=== PATIENT | female | born 1995 | race Caucasian/White ===

== ENCOUNTER 2019-12-16 15:35 | Emergency (ER) | payer MEDICAID, OTHER ==
[~2019-12-16] VITALS: Ht 157.4 cm; Wt 78.9 kg
[2019-12-16 15:35] VITALS: BP 117/72
[2019-12-16 15:58] LABS: BILIRUBIN,URINE NEGATIVE (NEGATIVE); CLARITY,URINE SL CLOUDY; COLOR,URINE YELLOW; GLUCOSE, URINE (UA) NEGATIVE (NEGATIVE); KETONES,URINE NEGATIVE (NEGATIVE); LEUKOCYTE ESTERASE ,URINE NEGATIVE (NEGATIVE); NITRITE,URINE NEGATIVE (NEGATIVE); PROTEIN,URINE NEGATIVE (NEGATIVE)
--- NOTE | 2019-12-16 16:04 | ED Abdominal Pain ---
General Chief Complaint: Female Reproductive Stated Complaint: 11 WEEKS ;ABD CRAMPING;SPOTTING Nursing Triage Note: Pt reports being 11 weeks and has been experiencing abdominal and back cramping that began today. Pt reports light blood on toilet paper when wiping.Pt sees Dr. Betts. 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 The patient is 11 weeks , dating reportedly confirmed by US with her OB Dr. Betts at 8 weeks. She states she has had 3 days of diarrhea with greenish stools. She complains of bilateral lower abdominal cramping occasionally radiating to the middle of her back today, severity 8/10. She states she had blood when wiping today and believes it was from her vagina. The patient denies fever, chills, chest pain, SOB, burning with urination, increased nausea. Denies passage of clots. The pt takes vitamins (FELIZ CARREON STUDENT) Allergies and Home Medications Allergies Coded Allergies: oxytocin (Verified Allergy, Unknown, 12/16/19) seizure at Patient Home Medication List Home Medication List Reviewed: Yes (FELIZ STALEY APRN) Review of Systems Review of Systems Constitutional: No chills, No fever Respiratory: Denies Cough, Denies Shortness of Air Cardiovascular: Denies Chest Pain Gastrointestinal: Abdominal Pain (bilateral lower pain); Denies Constipated; Diarrhea, Nausea (baseline for ), Other (blood with wiping vagina) Musculoskeletal: back pain (radiation from abdomen to mid back) (FELIZ CARREON STUDENT) Past Kswzwsy-Cveiov-Kofcno Hx Patient Social History Alcohol Use: Denies Use Recent Foreign Travel: No Contact w/Someone Who Travel: No Recent Infectious Disease Expo: No (FELIZ CARREON STUDENT) Physical Exam Vital Signs Vital Signs - First Documented 12/16/19 15:35 Temp 36.9 Pulse 89 Resp 20 B/P (MAP) 117/72 (87) Pulse Ox 99 O2 Delivery Room Air (FELIZ STALEY APRN) Vital Signs Capillary Refill : Less Than 3 Seconds (FELIZ CARREON MED STUDENT) Height/Weight/BMI Height: '" Weight: lbs. oz. kg; 31.00 BMI Method: General Appearance: WD/WN, no apparent distress HEENT: PERRL/EOMI Respiratory: chest non-tender, lungs clear, normal breath sounds, no respiratory distress, no accessory muscle use Cardiovascular: regular rate, rhythm, no edema, no gallop, no JVD, no murmur Gastrointestinal: non tender, soft, other (gravid abdomen) Back: normal inspection, no CVA tenderness Neurologic/Psychiatric: alert, normal mood/affect, oriented x 3 Skin: normal color, warm/dry (FELIZ CARREON MED STUDENT) Progress/Results/Core Measures Results/Orders Lab Results Laboratory Tests Test 12/16/19 15:39 12/16/19 16:07 12/16/19 16:08 Range/Units Urine Color YELLOW Urine Clarity SL CLOUDY Urine pH 7.0 5-9 Urine Specific [place] 1.015 L 1.016-1.022 Urine Protein NEGATIVE NEGATIVE Urine Glucose (UA) NEGATIVE NEGATIVE Urine Ketones NEGATIVE NEGATIVE Urine Nitrite NEGATIVE NEGATIVE Urine Bilirubin NEGATIVE NEGATIVE Urine Urobilinogen 0.2 < = 1.0 MG/DL Urine Leukocyte Esterase NEGATIVE NEGATIVE Urine RBC (Auto) NEGATIVE NEGATIVE Urine RBC NONE /HPF Urine WBC RARE /HPF Urine Squamous Epithelial Cells 10-25 H /HPF Urine Crystals NONE /LPF Urine Amorphous Sediment FEW NASRIN URATES H /LPF Urine Bacteria TRACE /HPF Urine Casts NONE /LPF Urine Mucus NEGATIVE /LPF Urine Culture Indicated NO Sodium Level 136 135-145 MMOL/L Potassium Level 4.2 3.6-5.0 MMOL/L Chloride Level 106 98-107 MMOL/L Carbon Dioxide Level 19 L 21-32 MMOL/L Anion Gap 11 5-14 MMOL/L Blood Urea Nitrogen 6 L 7-18 MG/DL Creatinine 0.57 L 0.60-1.30 MG/DL Estimat Glomerular Filtration Rate > 60 BUN/Creatinine Ratio 11 Glucose Level 86 70-105 MG/DL Calcium Level 8.8 8.5-10.1 MG/DL White Blood Count 10.7 4.3-11.0 10^3/uL Red Blood Count 3.69 L 3.80-5.11 10^6/uL Hemoglobin 11.8 11.5-16.0 g/dL Hematocrit 34 L 35-52 % Mean Corpuscular Volume 93 80-99 fL Mean Corpuscular Hemoglobin 32 25-34 pg Mean Corpuscular Hemoglobin Concent 34 32-36 g/dL Red Cell Distribution Width 12.0 10.0-14.5 % Platelet Count 308 130-400 10^3/uL Mean Platelet Volume 9.4 9.0-12.2 fL Immature Granulocyte % (Auto) 0 % Neutrophils (%) (Auto) 64 42-75 % Lymphocytes (%) (Auto) 28 12-44 % Monocytes (%) (Auto) 5 0-12 % Eosinophils (%) (Auto) 2 0-10 % Basophils (%) (Auto) 1 0-10 % Neutrophils # (Auto) 6.8 1.8-7.8 10^3/uL Lymphocytes # (Auto) 3.0 1.0-4.0 10^3/uL Monocytes # (Auto) 0.5 0.0-1.0 10^3/uL Eosinophils # (Auto) 0.2 0.0-0.3 10^3/uL Basophils # (Auto) 0.1 0.0-0.1 10^3/uL Immature Granulocyte # (Auto) 0.0 0.0-0.1 10^3/uL Human Chorionic Gonadotropin, Quant [id number] H <5 MIU/ML (FELIZ STALEY APRN) My Orders Orders - FELIZ STALEY APRN Hcg,Quantitative (12/16/19 15:39) Cbc With Automated Diff (12/16/19 15:39) Ua Culture If Indicated (12/16/19 15:39) Us Ob Single Fetus<14 [id number] (12/16/19 15:39) Abo Rh Type (12/16/19 15:39) Basic Metabolic Panel (12/16/19 16:17) (FELIZ STALEY APRN) Vital Signs/I&O 12/16/19 15:35 Temp 36.9 Pulse 89 Resp 20 B/P (MAP) 117/72 (87) Pulse Ox 99 O2 Delivery Room Air (FELIZ STALEY APRN) Blood Pressure Mean: 87 Progress Progress Note : Time: 16:00 Progress Note Zainab Conley is a A1 11-week gravid female presenting with complaint of 3 days of diarrhea and onset of abdominal cramping since waking up 9 hours ago. Th e patient states prior was a miscarriage. The patient is afebrile with HR 89 and BP 117/72. We will obtain CBC and type & screen, ultrasound to evaluate state of the , and UA to assess for urinary tract infection. (FELIZ CARREON MED STUDENT) Departure Communication (Admissions) Family Conversation 1630-Have seen the patient and agree with plan of care. Discussed with the audiovisual technician that she is about 10 weeks 6 days with no evidence of subchorionic hemorrhage. We will plan to discharge the patient to have her follow up with obstetrics and return for any concerns. NAME: ZAINAB CONLEY [facility] REC#: [id number] PT STATUS: REG ER : 1995 PHYSICIAN: FELIZ STALEY APRN ADMIT DATE: 12/16/19/ER Draft Date of Exam:12/16/19 US OB SINGLE FETUS<14 [id number] PROCEDURE: US OB SINGLE FETUS <14 WKS. TECHNIQUE: Multiple Real-time grayscale images were obtained over the gravid uterus in various projections. INDICATION: Bleeding during . FINDINGS: The uterus is retroverted and contains a jeffrey intrauterine gestational sac. A pole is present with a crown-rump length of 3.5 cm indicating a gestational age of 10 weeks and 4 days. The gestational sac has normal morphology without evidence of significant kam-gestational hematoma. Embryonic cardiac activity is present with a rate of 172 BPM. No maternal adnexal region abnormality is identified. IMPRESSION: Unremarkable early intrauterine gestation with an estimated age of 10 weeks and 4 days. The sonographic EDC is 07/09/2020. Dictated on workstation # [id number] Dict: 12/16/19 1617 Trans: 12/16/19 1623 [id number] Interpreted by: FREDERIC JUAN MD Electronically signed by: (FELIZ STALEY APRN) Impression Primary Impression: Cramping affecting , antepartum Disposition: 01 HOME, SELF-CARE Condition: Stable Departure-Patient Inst. Decision time for Depature: 16:29 (FELIZ STALEY APRN) Referrals: NO,LOCAL PHYSICIAN (PCP) Primary Care Physician Patient Instructions: Bleeding In Early Add. Discharge Instructions: 1. Call Dr. Betts tomorrow to make an appointment to be seen return to ER for any concerns. Take Tylenol As needed for pain and drink plenty of fluids. All discharge instructions reviewed with patient and/or family. Voiced understanding. FELIZ CARREON MED STUDENT Dec 16, 2019 16:04 FELIZ STALEY APRN Dec 16, 2019 16:30
[2019-12-16 16:10] LABS: AMORPHOUS SEDIMENT,UR FEW AMOR URATES /LPF; BACTERIA,URINE TRACE /HPF; WBC,URINE RARE /HPF
[2019-12-16 16:15] LABS: BASOPHILS # (AUTO) 0.1 10^3/uL (0.0-0.1); BASOPHILS % (AUTO) 1 % (0-10); EOSINOPHILS # (AUTO) 0.2 10^3/uL (0.0-0.3); EOSINOPHILS % (AUTO) 2 % (0-10); HEMATOCRIT 34 % (35-52); HEMOGLOBIN 11.8 g/dL (11.5-16.0); LYMPHOCYTES % (AUTO) 28 % (12-44); MEAN CORPUSCULAR HEMOGLOBIN 32 pg (25-34); MEAN CORPUSCULAR HGB CONC 34 g/dL (32-36); MEAN CORPUSCULAR VOLUME 93 fL (80-99); MEAN PLATELET VOLUME 9.4 fL (9.0-12.2); MONOCYTES # (AUTO) 0.5 10^3/uL (0.0-1.0); MONOCYTES % (AUTO) 5 % (0-12); NEUTROPHILS # (AUTO) 6.8 10^3/uL (1.8-7.8); NEUTROPHILS % (AUTO) 64 % (42-75); PLATELET COUNT 308 10^3/uL (130-400); WHITE BLOOD COUNT 10.7 10^3/uL (4.3-11.0)
--- NOTE | 2019-12-16 16:24 | Diagnostic Imaging Report ---
PROCEDURE: US OB SINGLE FETUS <14 WKS. TECHNIQUE: Multiple Real-time grayscale images were obtained over the gravid uterus in various projections. INDICATION: Bleeding during . FINDINGS: The uterus is retroverted and contains a jeffrey intrauterine gestational sac. A pole is present with a crown-rump length of 3.5 cm indicating a gestational age of 10 weeks and 4 days. The gestational sac has normal morphology without evidence of significant kam-gestational hematoma. Embryonic cardiac activity is present with a rate of 172 BPM. No maternal adnexal region abnormality is identified. IMPRESSION: Unremarkable early intrauterine gestation with an estimated age of 10 weeks and 4 days. The sonographic EDC is 07/09/2020. Dictated by: Dictated on workstation # [id number]
[2019-12-16 16:29] LABS: CHLORIDE 106 MMOL/L (98-107); POTASSIUM 4.2 MMOL/L (3.6-5.0); SODIUM 136 MMOL/L (135-145)
[2019-12-16 16:30] LABS: CALCIUM 8.8 MG/DL (8.5-10.1); GLUCOSE 86 MG/DL (70-105)
[2019-12-16 16:32] LABS: CARBON DIOXIDE 19 MMOL/L (21-32)
[2019-12-16 16:34] LABS: CREATININE SERUM 0.57 MG/DL (0.60-1.30); GFR ESTIMATED > 60
[2019-12-16 16:35] LABS: BUN/CREATININE RATIO 11
== END 2019-12-16 16:35 | disposition home or self-care (01) ==
LOC: ER 15:38
DX: O26.891 Other specified pregnancy related conditions, first trimester (principal); R10.30 Lower abdominal pain, unspecified; O26.851 Spotting complicating pregnancy, first trimester; Z3A.10 10 weeks gestation of pregnancy
CPT/HCPCS: 36415; 76801; 80048; 81000; 84702; 85025; 86900; 86901

== ENCOUNTER 2020-03-24 08:10 | Emergency (ER) | payer MEDICAID ==
[~2020-03-24] VITALS: Ht 160 cm; Wt 79.0 kg
--- NOTE | 2020-03-24 08:33 | ED General ---
General Stated Complaint: NIX, WOKE UP SOAK, N/V 25 WEEKS Source of Information: Patient Exam Limitations: No Limitations History of Present Illness Date Seen by Provider: Mar 24, 2020 Time Seen by Provider: 08:28 Initial Comments Patient is a 24-year-old female who presents to the emergency department today with a chief complaint of right-sided headache, not feeling well, an episode of nausea and vomiting before getting out of bed and waking up "soaked" in urine. Patient was unsure if this was actually urine or not and was concerned that her water might of broken. Patient states that she gets up multiple times a night to urinate. She states she is never woken up urine soaked in the past. Patient's estimated due date is July 072020. She has had no problems with this . She takes vitamins most of the time. She has taken Tylenol for her headache and it has helped in the past. She denies any recent fevers, chills, cough, Covid contacts. She has nausea and vomiting this morning and states that she vomits every morning. This was a little bit different because she vomited before she ever got out of bed. She denies any diarrhea or constipation. No urinary complaints such as dysuria, urgency but she has had some frequency. No abnormal vaginal discharge or bleeding is noted. Bedside heart tones are 140s. All other review of systems reviewed and negative except as stated above. Timing/Duration: 1-3 Hours Severity: Moderate Associated Systoms: Nausea/Vomiting Allergies and Home Medications Allergies Coded Allergies: oxytocin (Verified Allergy, Unknown, 12/16/19) seizure at Patient Home Medication List Home Medication List Reviewed: Yes Review of Systems Review of Systems Constitutional: see HPI EENTM: no symptoms reported Respiratory: no symptoms reported Gastrointestinal: No abdominal pain, No constipation, No diarrhea; heartburn; No loss of appetite, No melena; nausea, vomiting Genitourinary: frequency : Yes Expected Date of Delivery: July 07, 2020 Musculoskeletal: no symptoms reported Skin: no symptoms reported All Other Systems Reviewed Negative Unless Noted: Yes Past Aqhxmqh-Nodcmz-Krckus Hx Patient Social History 2nd Hand Smoke Exposure: No Recent Hopitalizations: No Past Medical History Surgeries: Yes (D&C) Cardiac: No Neurological: No Genitourinary: No Gastrointestinal: No Musculoskeletal: No Endocrine: No HEENT: No Cancer: No Psychosocial: Yes Anxiety Integumentary: Yes Herpes Blood Disorders: No Adverse Reaction/Blood Tranf: No Physical Exam Vital Signs Vital Signs - First Documented 03/24/20 08:19 Temp 36.4 Pulse 96 Resp 18 B/P (MAP) 124/79 (94) Pulse Ox 99 O2 Delivery Room Air Capillary Refill : Height, Weight, BMI Height: '" Weight: lbs. oz. kg; 31.00 BMI Method: General Appearance: No Apparent Distress, WD/WN Eyes: Bilateral Eye Normal Inspection, Bilateral Eye PERRL, Bilateral Eye EOMI Neck: Normal Inspection Respiratory: Lungs Clear, Normal Breath Sounds, No Accessory Muscle Use, No Respiratory Distress Cardiovascular: Regular Rate, Rhythm Gastrointestinal: Non Tender, Soft, Other (Gravid uterus at about the umbilicus) Genital/Rectal: Normal Genital Exam, Other (SURE SWAB, nitazine swab used to evaluate for amniotic fluid - it was NEGATIVE) Extremity: Normal Inspection, Normal Range of Motion, Non Tender, No Calf Tenderness, No Pedal Edema Neurologic/Psychiatric: Alert, Oriented x3, No Motor/Sensory Deficits, Normal Mood/Affect Progress/Results/Core Measures Suspected Sepsis SIRS Temperature: Pulse: Respiratory Rate: Blood Pressure / Mean: Results/Orders Lab Results Laboratory Tests Test 03/24/20 08:40 Range/Units Urine Color YELLOW Urine Clarity CLEAR Urine pH 7.5 5-9 Urine Specific [place] 1.015 L 1.016-1.022 Urine Protein NEGATIVE NEGATIVE Urine Glucose (UA) NEGATIVE NEGATIVE Urine Ketones NEGATIVE NEGATIVE Urine Nitrite NEGATIVE NEGATIVE Urine Bilirubin NEGATIVE NEGATIVE Urine Urobilinogen 0.2 < = 1.0 MG/DL Urine Leukocyte Esterase NEGATIVE NEGATIVE Urine RBC (Auto) NEGATIVE NEGATIVE Urine RBC NONE /HPF Urine WBC 2-5 /HPF Urine Squamous Epithelial Cells 10-25 H /HPF Urine Crystals PRESENT H /LPF Urine Amorphous Sediment FEW NASRIN PHOSPHATE H /LPF Urine Bacteria FEW H /HPF Urine Casts NONE /LPF Urine Mucus SMALL H /LPF Urine Culture Indicated NO My Orders Orders - ALICE TORRES MD Ua Culture If Indicated (03/24/20 08:33) Acetaminophen Tablet (Tylenol Tablet) (03/24/20 08:45) Medications Given in ED Current Medications Medications Dose Ordered Sig/Steffanie Route Start Time Stop Time Status Last Admin Dose Admin Acetaminophen 1,000 mg ONCE ONCE PO 03/24/20 08:45 03/24/20 08:46 DC 03/24/20 09:01 1,000 MG Vital Signs/I&O 03/24/20 08:19 Temp 36.4 Pulse 96 Resp 18 B/P (MAP) 124/79 (94) Pulse Ox 99 O2 Delivery Room Air Capillary Refill : Progress Note : Time: 08:45 Progress Note heart tones 144 0929 Nitrazine swab used to evaluate for amniotic fluid, this swab was negative. No evidence of urinary tract infection on urinalysis. Patient is treated with Tylenol here in the emergency department. She feels reassured that she has not had leaking amniotic fluid. I have encouraged her to follow-up with Dr. Flower, her OB. She verbalizes understanding. I encouraged her to stay well-hydrated drinking dilute Gatorade or Pedialyte. I told her that being dehydrated can trigger migraines especially in . I have advised her to only take Tylenol. She verbalizes understanding. All questions are sought and answered. She is stable for discharge. Departure Impression Primary Impression: Headache Qualified Codes: R51.9 - Headache, unspecified Additional Impression: Urinary incontinence Qualified Codes: R32 - Unspecified urinary incontinence Disposition: 01 HOME, SELF-CARE Condition: Stable Departure-Patient Inst. Decision time for Depature: 09:31 Referrals: GARY FLOWER MD (PCP/Family) Primary Care Physician Patient Instructions: Headache, Adult (DC) Add. Discharge Instructions: Drink plenty of fluids to stay well-hydrated. You can drink diluted Gatorade or Pedialyte to keep up with your electrolytes. Take gqil-jlu-iluzqmh Tylenol only, do not take any ibuprofen or Aleve products, as needed for your headache. You can take 2 extra strength every 4-6 hours as needed for headache. Please keep your follow-up appointments with your OB provider. Return to the emergency room for any other new, emergent or concerning symptoms. Copy Copies To 1: GARY FLOWER MD, KATHRYN M MD Mar 24, 2020 08:33
[2020-03-24] MEDS ORDERED: ACETAMINOPHEN 500 MG TAB (TYLENOL) PO ONE (08:45)
[2020-03-24 08:46] LABS: BILIRUBIN,URINE NEGATIVE (NEGATIVE); CLARITY,URINE CLEAR; COLOR,URINE YELLOW; GLUCOSE, URINE (UA) NEGATIVE (NEGATIVE); KETONES,URINE NEGATIVE (NEGATIVE); LEUKOCYTE ESTERASE ,URINE NEGATIVE (NEGATIVE); NITRITE,URINE NEGATIVE (NEGATIVE); PH,URINE 7.5 (5-9); PROTEIN,URINE NEGATIVE (NEGATIVE)
[2020-03-24 08:53] LABS: BACTERIA,URINE FEW /HPF
[2020-03-24 08:54] LABS: AMORPHOUS SEDIMENT,UR FEW AMOR PHOSPHATE /LPF
[2020-03-24 09:37] VITALS: BP 130/76
== END 2020-03-24 09:37 | disposition home or self-care (01) ==
LOC: EDUNIT# 08:10 → ER 08:13
DX: O21.0 Mild hyperemesis gravidarum (principal); R51.9 Headache, unspecified; R32 Unspecified urinary incontinence; Z88.8 Allergy status to other drugs, medicaments and biological substances; Z3A.25 25 weeks gestation of pregnancy
CPT/HCPCS: 81000

== ENCOUNTER 2020-06-14 04:41 | Outpatient (CLI) | payer MEDICAID ==
[~2020-06-14] VITALS: Ht 157.5 cm; Wt 81.6 kg
[2020-06-14] MEDS ORDERED: D5 LR IV SOLUTION 1,000 ML IV ONE ×3 (05:05→07:55)
[2020-06-14] MEDS ORDERED: ACYC400T21 PO (05:07)
[2020-06-14] MEDS ORDERED: FLUO40CA PO (05:07)
[2020-06-14] MEDS ORDERED: PREN-142 PO (05:07)
[2020-06-14 05:47] VITALS: BP 127/97
[2020-06-14] MEDS ORDERED: ONDANSETRON 4 MG/2 ML (SDV) Z0FRAN ONE (07:54)
[2020-06-14] MEDS ORDERED: D5 LR IV SOLUTION 1,000 ML IV SCH (08:00)
[2020-06-14] MEDS ORDERED: ONDANSETRON 4 MG/2 ML (SDV) Z0FRAN IVP ONE (08:00)
[2020-06-14 08:22] LABS: BASOPHILS # (AUTO) 0.1 10^3/uL (0.0-0.1); BASOPHILS % (AUTO) 1 % (0-10); EOSINOPHILS # (AUTO) 0.2 10^3/uL (0.0-0.3); EOSINOPHILS % (AUTO) 2 % (0-10); HEMATOCRIT 33 % (35-52); HEMOGLOBIN 11.1 g/dL (11.5-16.0); LYMPHOCYTES # (AUTO) 3.7 10^3/uL (1.0-4.0); LYMPHOCYTES % (AUTO) 29 % (12-44); MEAN CORPUSCULAR HEMOGLOBIN 31 pg (25-34); MEAN CORPUSCULAR HGB CONC 34 g/dL (32-36); MEAN CORPUSCULAR VOLUME 93 fL (80-99); MONOCYTES # (AUTO) 0.9 10^3/uL (0.0-1.0); MONOCYTES % (AUTO) 7 % (0-12); NEUTROPHILS # (AUTO) 8.1 10^3/uL (1.8-7.8); NEUTROPHILS % (AUTO) 62 % (42-75); PLATELET COUNT 235 10^3/uL (130-400)
[2020-06-14 08:52] LABS: ALANINE AMINOTRANSFERASE 8 U/L (0-55); ALBUMIN 3.2 GM/DL (3.2-4.5); ALKALINE PHOSPHATASE 155 U/L (40-136); BILIRUBIN,TOTAL 0.4 MG/DL (0.1-1.0); BUN/CREATININE RATIO 12; CALCIUM 8.6 MG/DL (8.5-10.1); CARBON DIOXIDE 21 MMOL/L (21-32); CHLORIDE 108 MMOL/L (98-107); CREATININE SERUM 0.58 MG/DL (0.60-1.30); GFR ESTIMATED > 60; GLUCOSE 83 MG/DL (70-105); POTASSIUM 3.7 MMOL/L (3.6-5.0); SODIUM 138 MMOL/L (135-145); TOTAL PROTEIN 5.8 GM/DL (6.4-8.2)
[2020-06-14 09:03] LABS: BILIRUBIN,URINE NEGATIVE (NEGATIVE); CLARITY,URINE CLEAR; COLOR,URINE YELLOW; GLUCOSE, URINE (UA) NEGATIVE (NEGATIVE); KETONES,URINE NEGATIVE (NEGATIVE); LEUKOCYTE ESTERASE ,URINE NEGATIVE (NEGATIVE); NITRITE,URINE NEGATIVE (NEGATIVE); PROTEIN,URINE NEGATIVE (NEGATIVE)
[2020-06-14 09:15] LABS: BACTERIA,URINE FEW /HPF; RBC,URINE 0-2 /HPF
[2020-06-14 09:17] LABS: AMORPHOUS SEDIMENT,UR RARE AMOR PHOSPHATE /LPF
--- NOTE | 2020-06-15 08:37 | Physician Query-Final Dx ---
PALAK LAWRENCE 06/15/20 0837: Clinic Account Progress/Dx Physician Query: Please give diagnosis Please include # weeks gestation Date of Service Jun 14, 2020 at 04:41 GARY FLOWER MD 06/15/20 1150: Clinic Account Progress/Dx DIAGNOSIS: Diagnosis False labor at 36 weeks gestation PALAK LAWRENCE Jun 15, 2020 08:37 GARY FLOWER MD Jun 15, 2020 11:50
== END 2020-06-14 10:40 | disposition home or self-care (01) ==
LOC: WSo 04:41 → LDRP 04:49 → WSo 10:40
PROVIDERS: ATTEND Obstetrics & Gynecology
DX: O47.03 False labor before 37 completed weeks of gestation, third trimester (principal); Z3A.36 36 weeks gestation of pregnancy
CPT/HCPCS: 36415; 80053; 81000; 85025; 96361; 96374; 99213

== ENCOUNTER 2020-06-20 05:31 | Outpatient (CLI) | payer MEDICAID ==
[~2020-06-20] VITALS: Ht 157.5 cm; Wt 80.5 kg
[~2020-06-20 05:31] MED LIST: ACYC400T21 PO; FLUO40CA PO; PREN-142 PO
== END 2020-06-20 12:25 | disposition home or self-care (01) ==
LOC: PREOP 05:31
PROVIDERS: ATTEND Obstetrics & Gynecology
DX: Z01.818 Encounter for other preprocedural examination (principal)

== ENCOUNTER 2020-06-23 02:05 | Inpatient (IN) | payer MEDICAID ==
[2020-06-23] VITALS (9 sets, daily range): BP systolic 103–140; BP diastolic 56–83
[~2020-06-23] VITALS: Ht 157.5 cm; Wt 79.4 kg
[2020-06-23] MEDS ORDERED: METOCLOPRAMIDE INJ 10 MG/2 ML (REGLAN) ONE (05:55)
[2020-06-23] MEDS ORDERED: metroNIDAZOLE 500MG/100ML IVPB 100 ML ONE (05:56)
[2020-06-23] MEDS ORDERED: LACTATED RINGERS 1,000 ML IV ONE (05:56)
[2020-06-23] MEDS ORDERED: CITRIC ACID/SOB CIT (BICITRA) 30 ML UDC ONE (05:56)
[2020-06-23] MEDS ORDERED: FAMOTIDINE 20MG/2ML IV (PEPCID) ONE (05:56)
[2020-06-23] MEDS ORDERED: ceFAZolin 2 GM IV Premixed 50 ML ONE (05:56)
[2020-06-23] MEDS ORDERED: CITRIC ACID/SOB CIT (BICITRA) 30 ML UDC PO ONE (06:30)
[2020-06-23] MEDS ORDERED: ceFAZolin INJECTION 2,000 MG in WATER (STERILE) FOR INJECTION 10 ML IV ONE (06:30)
[2020-06-23] MEDS ORDERED: METOCLOPRAMIDE INJ 10 MG/2 ML (REGLAN) IV ONE (06:30)
[2020-06-23] MEDS ORDERED: CATHETER FLUSH 10 ML SYR IV PRN (06:30)
[2020-06-23] MEDS ORDERED: metroNIDAZOLE 500MG/100ML IVPB 100 ML IV ONE (06:30)
[2020-06-23] MEDS ORDERED: LACTATED RINGERS 1,000 ML IV PRN ×2 (06:30)
[2020-06-23] MEDS ORDERED: fentaNYL INJ 100 MCG/2 ML AMP ONE (06:39)
[2020-06-23 06:50] LABS: BASOPHILS # (AUTO) 0.1 10^3/uL (0.0-0.1); BASOPHILS % (AUTO) 0 % (0-10); EOSINOPHILS # (AUTO) 0.2 10^3/uL (0.0-0.3); EOSINOPHILS % (AUTO) 2 % (0-10); HEMATOCRIT 34 % (35-52); HEMOGLOBIN 11.9 g/dL (11.5-16.0); LYMPHOCYTES # (AUTO) 3.8 10^3/uL (1.0-4.0); LYMPHOCYTES % (AUTO) 27 % (12-44); MEAN CORPUSCULAR HEMOGLOBIN 32 pg (25-34); MEAN CORPUSCULAR HGB CONC 35 g/dL (32-36); MEAN CORPUSCULAR VOLUME 90 fL (80-99); MEAN PLATELET VOLUME 10.9 fL (9.0-12.2); MONOCYTES # (AUTO) 0.7 10^3/uL (0.0-1.0); MONOCYTES % (AUTO) 5 % (0-12); NEUTROPHILS # (AUTO) 9.5 10^3/uL (1.8-7.8); NEUTROPHILS % (AUTO) 66 % (42-75); PLATELET COUNT 282 10^3/uL (130-400); WHITE BLOOD COUNT 14.4 10^3/uL (4.3-11.0)
[2020-06-23] MEDS ORDERED: FAMOTIDINE 20MG/2ML IV (PEPCID) IVP ONE (07:00)
--- NOTE | 2020-06-23 07:02 | History & Physical ---
History and Physical Date Seen by Provider: June 23, 2020 Time Seen by Provider: 06:59 This patient is a 24-year-old 1 white female who presents at 38+ weeks gestation for primary delivery. Her history is significant for recurre nt genital herpes for which she is on daily Valtrex. She reports relatively frequent prodromal symptoms and has had obvious lesions in the last week. She is also noted to have polyhydramnios on last ultrasound. She denies rupture membranes or bleeding. Her GBS culture after 35 weeks gestation was negative. Allergies are none Medications are vitamins Medical social and surgical history is all per the antepartum record HEENT exam is normal Neck is supple no lymphadenopathy no thyromegaly Abdomen is gravid soft nontender nondistended Extremities show no clubbing cyanosis. There is no Homans' sign. Pelvic exam is deferred Laboratory Tests 06/23/20 06:35 Assessment and plan term at 38 weeks gestation with genital herpes and history and presentation suspicious for current program and/or active lesions. Plan is to proceed with delivery. Patient has unexplained polyhydramnios with late onset but has had reassuring testing 38-week gestation with polyhydramnios and genital herpes Allergies and Home Medications Allergies Coded Allergies: No Known Drug Allergies (Unverified , 06/23/20) Home Medications Acyclovir 400 Mg Tablet, 400 MG PO BID, (Reported) Last Action: Reviewed Fluoxetine HCl 40 Mg Capsule, 40 MG PO DAILY, (Reported) Last Action: Reviewed Vit No.124/Iron/FA 1 Each Tablet, 1 EACH PO DAILY, (Reported) Last Action: Reviewed Patient Home Medication List Home Medication List Reviewed: Yes GARY FLOWER MD June 23, 2020 07:01
[2020-06-23] MEDS ORDERED: OXYC1TAB12 PO (07:03)
[2020-06-23] MEDS ORDERED: IBUP-1780 PO (07:03)
[2020-06-23] MEDS ORDERED: DOCU-143 PO (07:03)
--- NOTE | 2020-06-23 07:04 | Discharge Inst-Surgical ---
Discharge Inst-Surgical Depart Medication/Instructions New, Converted or Re-Newed RX: RX on Chart Consults/Follow Up Patient Instructions: As directed Orders & Referrals Follow Up Appt: RTC Next Saturday, June 30, 2020 at 9:30 AM week for incision check. Call to make follow up appt. for patient in 4 weeks. Wound Care: Remove barbara, apply benzoin and steri strips. Activity Per routine post instructions. Please call in RX to patient pharmacy. Diet as tolerated Patient may shower or tub bathe as desired. Continue home meds Activity Activity as Tolerated: No Diet Discharge Diet: No Restrictions GARY FLOWER MD June 23, 2020 07:04
[2020-06-23 07:14] LABS: BAND NEUTROPHILS 2 %; LYMPHOCYTES % (MANUAL) 27 %; MONOCYTES % (MANUAL) 5 %; NEUTROPHILS % (MANUAL) 66 %; RBC MORPH NORMAL
[2020-06-23] MEDS ORDERED: PHENYLEPHRINE 100 MCG/ML 10 ML (ANESTHESIA) SYR ONE (07:22)
[2020-06-23] MEDS ORDERED: OXYTOCIN (PITOCIN) 10 UNIT/ML VIAL ONE (07:22)
[2020-06-23] MEDS ORDERED: ROPIVACAINE 5MG/ML 30ML VIAL ONE (07:22)
[2020-06-23] MEDS ORDERED: ONDANSETRON 4 MG/2 ML (SDV) Z0FRAN ONE (07:28)
[2020-06-23] MEDS ORDERED: HYDROmorphone 2 MG/ML VIAL (DILAUDID) IV ONE (08:00)
[2020-06-23] MEDS ORDERED: ONDANSETRON 4 MG/2 ML (SDV) Z0FRAN IVP PRN ×2 (08:00→08:30)
[2020-06-23] MEDS: OXYTOCIN PRE-MIX DRIP 500 ML IV SCH (08:20)
[2020-06-23] MEDS ORDERED: MEASLES,MUMPS,RUBELLA 1 EA INJ SC ONE (08:30)
[2020-06-23] MEDS ORDERED: TETANUS,DIPTH,PERTUSS P/F (BOOSTRIX) 0.5 ML VIAL IM ONE (08:30)
[2020-06-23] MEDS ORDERED: D5 LR IV SOLUTION 1,000 ML IV SCH (08:30)
[2020-06-23] MEDS ORDERED: fentaNYL INJ 100 MCG/2 ML AMP IVP PRN (08:30)
[2020-06-23] MEDS: KETOROLAC 30 MG/ML VIAL IVP SCH ×3 (08:37→20:12)
[2020-06-23] MEDS ORDERED: DOCUSATE SODIUM 100 MG (COLACE) CAP PO SCH (09:00)
[2020-06-23] MEDS: oxyCODONE/APAP 10/325MG (PERCOCET 10) TABLET PO PRN ×2 (11:55→20:12)
[2020-06-23] MEDS: DOCUSATE SODIUM 100 MG (COLACE) CAP PO SCH ×2 (11:55→20:12)
--- NOTE | 2020-06-23 12:18 | OPERATIVE REPORT ---
DATE OF SERVICE: 06/23/2020 PREOPERATIVE DIAGNOSES: A 38-week with a history of genital herpes and with polyhydramnios. POSTOPERATIVE DIAGNOSES: A 38-week with a history of genital herpes and with polyhydramnios. OPERATIVE PROCEDURES: Primary low transverse delivery of a viable female with Apgars of 7 and 9 at 1 and 5 minutes respectively, weight of 6 pounds and 10 ounces. time of 09/10 and a cord blood pH of 7.32. OPERATIVE DESCRIPTION: With the patient in the supine position under satisfactory spinal analgesia, the patient was prepped and draped in the usual fashion for abdominal surgery. Dao catheter was placed in the urinary bladder. A Pfannenstiel incision was made through the skin with scalpel. The patient's abdomen was entered in the usual manner. Bladder retractor placed in position, clean scalpel used to make a 4 cm hysterotomy incision transversely across the lower uterine segment that was extended by blunt dissection as well. Copious clear fluid was released on hysterotomy. Chauhan forceps were applied to facilitate the delivery of a vigorous viable female with Apgars and stats as noted above. The was bulb suctioned on delivery of the head and again on completion of delivery. The umbilical cord was doubly clamped and cut and the passed to the pediatric nurse in attendance for delivery. Cord bloods were obtained. The placenta delivered spontaneously [place]. It was a normal placenta, but did have a large accessory lobe with velamentous insertion of the vessels running across the intervening space. Placenta was sent to pathology for permanent section. The uterus was exteriorized. The interior was wiped clean with a wet laparotomy sponge. Uterine incision was closed with a running locked suture of 2-0 Vicryl. Hemostasis was complete. The uterus was returned to the abdominal cavity. All blood clot and debris removed from the abdominal cavity. With sponge and needle counts correct, hemostasis assured. The anterior parietal peritoneum was closed with running suture of 2-0 Vicryl. Rectus muscles were closed with that suture as well. The rectus fascia was closed with 2-0 Vicryl, subcutaneous tissue was closed with 2-0 Vicryl and the skin was stapled. Sponge and needle counts were correct on completion of the procedure. Estimated blood loss was around 500 mL. The patient tolerated the procedure well and was transferred to the recovery room in a stable condition. The had been taken stable to the full term nursery under the care of the pediatric nurse. Job ID: [id number] DocumentID: [id number] Dictated Date: 06/23/2020 08:00:38 [employer] Bi Developer Date: 06/23/2020 12:17:39 Dictated By: GARY FLOWER MD
[2020-06-24] VITALS (7 sets, daily range): BP systolic 122–150; BP diastolic 68–90
[2020-06-24] MEDS: D5 LR IV SOLUTION 1,000 ML IV SCH ×3 (00:38→06:55)
[2020-06-24] MEDS: OXYTOCIN PRE-MIX DRIP 500 ML IV SCH (00:39)
[2020-06-24] MEDS: KETOROLAC 30 MG/ML VIAL IVP SCH ×2 (02:39→07:59)
[2020-06-24] MEDS: oxyCODONE/APAP 10/325MG (PERCOCET 10) TABLET PO PRN (05:20)
--- NOTE | 2020-06-24 07:25 | Anesthesia-Regional Post-Op ---
Regional Patient Condition Mental Status: Alert, Oriented x3 Circulation: Same as Pre-Op Headache: Absent Sensation: Full Recovery Motor Block: Absent Post Op Complications Complications None Follow Up Care/Instructions Patient Instructions None needed. Anesthesia/Patient Condition Patient is doing well, no complaints, stable vital signs, no apparent adverse anesthesia problems. No complications reported per nursing. STEPHEN MCGINNIS CRNA June 24, 2020 07:25
--- NOTE | 2020-06-24 07:59 | Progress Note ---
Standard Progress Note Progress Notes/Assess & Plan Date Seen by a Provider: June 24, 2020 Time Seen by a Provider: 07:58 Progress/Assessment & Plan This patient is without complaint. She is ambulating, voiding, tolerating oral intake well and has good pain control. Vital Signs Date Time Temp Pulse Resp B/P (MAP) Pulse Ox O2 Delivery O2 Flow Rate FiO2 06/24/20 04:30 36.9 84 18 143/76 (98) 99 Room Air 06/24/20 00:07 36.4 88 18 124/77 (93) 98 Room Air 06/23/20 21:00 Room Air 06/23/20 19:59 36.7 68 18 125/78 (94) 100 Room Air 06/23/20 19:39 98 Room Air 06/23/20 15:00 36.7 72 18 130/68 (88) 99 Room Air 06/23/20 11:47 36.5 68 16 140/72 (94) 99 Room Air 06/23/20 08:45 35.5 18 108/76 (87) 99 06/23/20 08:45 Room Air 06/23/20 08:28 35.5 68 16 103/67 (79) 99 Room Air 06/23/20 08:25 35.5 16 103/67 (79) 99 06/23/20 08:25 Room Air 06/23/20 08:08 35.7 16 111/77 (88) 100 06/23/20 08:08 Room Air I & O 06/24/20 07:00 Intake Total 1910 ml Output Total 1715 ml Balance 195 ml Vital signs are stable. Patient is afebrile. The abdomen is benign. The surgical incision is clean dry and intact. Extremities show no clubbing cyanosis. There is no Homans' sign. Assessment and plan postoperative day #1 status post primary delivery doing well. Plan is for routine convalescent care GARY FLOWER MD June 24, 2020 07:59
[2020-06-24] MEDS ORDERED: IBUPROFEN 800 MG (MOTRIN) TAB PO ONE ×2 (08:01→15:48)
[2020-06-24] MEDS: DOCUSATE SODIUM 100 MG (COLACE) CAP PO SCH ×2 (08:15→23:00)
[2020-06-24] MEDS: IBUPROFEN 800 MG (MOTRIN) TAB PO SCH (23:00)
[2020-06-25 04:30] VITALS: BP 119/68
[2020-06-25] MEDS: IBUPROFEN 800 MG (MOTRIN) TAB PO SCH ×2 (04:30→11:27)
--- NOTE | 2020-06-25 05:34 | Progress Note ---
Standard Progress Note Progress Notes/Assess & Plan Date Seen by a Provider: June 25, 2020 Time Seen by a Provider: 05:33 Progress/Assessment & Plan This patient is without complaint. She is ambulating, voiding, tolerating oral intake well and has good pain control. Vital Signs Date Time Temp Pulse Resp B/P (MAP) Pulse Ox O2 Delivery O2 Flow Rate FiO2 06/24/20 04:30 36.9 84 18 143/76 (98) 99 Room Air 06/24/20 00:07 36.4 88 18 124/77 (93) 98 Room Air 06/23/20 21:00 Room Air 06/23/20 19:59 36.7 68 18 125/78 (94) 100 Room Air 06/23/20 19:39 98 Room Air 06/23/20 15:00 36.7 72 18 130/68 (88) 99 Room Air 06/23/20 11:47 36.5 68 16 140/72 (94) 99 Room Air 06/23/20 08:45 35.5 18 108/76 (87) 99 06/23/20 08:45 Room Air 06/23/20 08:28 35.5 68 16 103/67 (79) 99 Room Air 06/23/20 08:25 35.5 16 103/67 (79) 99 06/23/20 08:25 Room Air 06/23/20 08:08 35.7 16 111/77 (88) 100 06/23/20 08:08 Room Air I & O 06/24/20 07:00 Intake Total 1910 ml Output Total 1715 ml Balance 195 ml Vital signs are stable. Patient is afebrile. The abdomen is benign. The surgical incision is clean dry and intact. Extremities show no clubbing cyanosis. There is no Homans' sign. Assessment and plan postoperative day #1 status post primary delivery doing well. Plan is for routine convalescent care May 26, 2020 This patient is without complaint. She is ambulating, voiding, tolerating oral intake well and has good pain control. Vital Signs Date Time Temp Pulse Resp B/P (MAP) Pulse Ox O2 Delivery O2 Flow Rate FiO2 06/25/20 04:30 37.0 81 18 119/68 (85) 98 Room Air 06/24/20 22:54 36.9 79 18 138/90 (106) 98 Room Air 06/24/20 21:00 Room Air 06/24/20 19:50 36.4 85 18 150/88 (108) 98 Room Air 06/24/20 16:25 36.7 90 16 137/79 (98) 98 Room Air 06/24/20 11:17 36.8 88 16 122/68 (86) 99 Room Air 06/24/20 09:00 Room Air 06/24/20 08:00 36.4 88 16 127/72 (90) 99 Room Air I & O 06/25/20 07:00 Intake Total 575 ml Output Total 785 ml Balance -210 ml Vital signs are stable. Patient is afebrile. Fundus is firm below the umbilicus and nontender. The incision is clean dry and intact. Extremities show no clubbing or cyanosis. There is no Homans' sign. Assessment and plan Post operative day #2 status post primary delivery. Patient is doing well and will be discharged home with follow-up in clinic Final Diagnosis 38-week primary delivery GARY FLOWER MD June 25, 2020 05:34
[2020-06-25] MEDS: DOCUSATE SODIUM 100 MG (COLACE) CAP PO SCH (08:33)
[2020-06-25 08:34] VITALS: BP 137/87
[2020-06-28] MEDS ORDERED: IBUPROFEN 800 MG (MOTRIN) TAB PO SCH (12:00)
== END 2020-06-25 13:20 | disposition home or self-care (01) | DRG 787 ==
LOC: LDRP 06:14
PROVIDERS: ADMIT Obstetrics & Gynecology; ATTEND Obstetrics & Gynecology
PROC: 10D00Z1 Extraction of Products of Conception, Low, Open Approach (ICD-10-PCS; principal; 2020-06-23 07:04)
DX: O40.3XX0 Polyhydramnios, third trimester, not applicable or unspecified (principal); O98.52 Other viral diseases complicating childbirth; B00.9 Herpesviral infection, unspecified; Z3A.38 38 weeks gestation of pregnancy; Z37.0 Single live birth
CPT/HCPCS: 36415; 85007; 85027; 86850; 86900; 86901; 87081; 94664; 94760